=== PATIENT | female | born 1970 | race Caucasian/White ===

== ENCOUNTER → 2017-02-26 | Outpatient (CLI) | payer OTHER | LOC: CIMAGING 14:06 | PROVIDERS: ATTEND Family Medicine | DX: Z12.31 Encounter for screening mammogram for malignant neoplasm of breast (principal) | CPT/HCPCS: G0202; G0206 ==

== ENCOUNTER → 2017-03-25 | Day surgery (SDC) | payer OTHER ==
[~2017-03-25] MED LIST: BUPIVACAINE 0.5% 10 ML SDV ONE; DIAZEPAM 5 MG TAB ONE; DIAZEPAM 5 MG TAB PO ONE; LIDOCAINE 1% 300 MG/30 ML SDV ONE; THROMBIN (BOVINE) 5,000 UNIT VIAL TP ONE
== END | disposition home or self-care (01) ==
LOC: FIMAGING 07:07
PROVIDERS: ATTEND Family Medicine
PROC: 0HBU3ZX Excision of Left Breast, Percutaneous Approach, Diagnostic (ICD-10-PCS; principal; 2017-03-25)
DX: D05.12 Intraductal carcinoma in situ of left breast (principal)
CPT/HCPCS: G0206

== ENCOUNTER → 2017-10-29 | Outpatient (CLI) | payer OTHER | LOC: FIMAGING 10:48 | PROVIDERS: ATTEND Internal Medicine Hematology & Oncology | DX: M25.511 Pain in right shoulder (principal); R07.81 Pleurodynia; M54.2 Cervicalgia; D05.12 Intraductal carcinoma in situ of left breast | CPT/HCPCS: 78306; A9503 ==

== ENCOUNTER → 2018-10-01 | Outpatient (CLI) | payer OTHER | LOC: EMCIMAGING 09:17 ==